=== PATIENT | female | born 1955 | race Caucasian/White ===

== ENCOUNTER 2017-09-11 12:05 | Emergency (ER) | payer SELFPAY ==
[~2017-09-11] VITALS: Ht 170.2 cm; Wt 65.3 kg
[2017-09-11] MEDS ORDERED: ESCI20TA PO (12:16)
[2017-09-11] MEDS ORDERED: AMYL1CAP56 PO (12:16)
[2017-09-11] MEDS ORDERED: TRAZ-144 PO (12:16)
[2017-09-11] MEDS ORDERED: ONDANSETRON ODT 4 MG TAB.RAPDIS SL ONE (12:30)
[2017-09-11] MEDS ORDERED: MORPHINE SULFATE 4 MG/1 ML DISP.SYRIN IM ONE ×2 (12:30→13:45)
[2017-09-11] MEDS ORDERED: MORPHINE SULFATE 4 MG/1 ML DISP.SYRIN ONE ×2 (12:40→13:49)
[2017-09-11] MEDS ORDERED: ONDANSETRON ODT 4 MG TAB.RAPDIS ONE (12:40)
--- NOTE | 2017-09-11 14:06 | NUR ---
Patient discharged to home in stable conditon. Written and verbal after care instructions given. Patient verbalizes understanding of instructions.pt walks in steady gait. pt accomanied by , pt not driving. pain down to tolerable level of 3/10. no nausea at this point.
[2017-09-11 14:08] VITALS: BP 131/69
== END 2017-09-11 14:09 | disposition home or self-care (01) ==
LOC: ER 12:07
DX: S13.4XXA Sprain of ligaments of cervical spine, initial encounter (principal); S09.90XA Unspecified injury of head, initial encounter; Z79.891 Long term (current) use of opiate analgesic; Z79.899 Other long term (current) drug therapy; V43.52XA Car driver injured in collision with other type car in traffic accident, initial encounter; Y93.89 Activity, other specified; Y92.410 Unspecified street and highway as the place of occurrence of the external cause; Y99.8 Other external cause status
CPT/HCPCS: 70450; 72072; 72125; 96372 ×2; 99284; A4663; J2270 ×2; Q0162